=== PATIENT | male | born 1970 | race Caucasian/White ===

== ENCOUNTER 2025-04-03 10:59 | Day surgery (SDC) | payer OTHER ==
[~2025-04-03 10:59] MED LIST: Lactated Ringers 1,000 ML IV ONE
[2025-04-03 11:18] VITALS: RESP 18
[2025-04-03] MEDS ORDERED: Lactated Ringers 1,000 ML IV SCH (11:30)
[2025-04-03] MEDS ORDERED: propofoL IV ONE ×2 (11:55→12:28)
[2025-04-03] MEDS ORDERED: Xylocaine-Mpf 2% 5 Ml Vial ONE (11:56)
[2025-04-03 13:00] VITALS: BP 113/66; PULSE 63; TEMP 97.4; O2SAT 100
--- NOTE | 2025-04-04 09:01 | OP ---
SURGERY DATE/TIME: 04/03/2025 [id number] PREOPERATIVE DIAGNOSES: 1) Due for colorectal cancer screening, average risk. 2) Bright red blood per rectum. POSTOPERATIVE DIAGNOSES: 1) Mild internal hemorrhoids. 2) Fair preparation. PROCEDURE: Colonoscopy. SURGEON: Teja Porter MD ANESTHESIA: IV. DISPOSITION: Stable. COMPLICATIONS: None. SPECIMEN: None. INDICATIONS: The patient is a 55-year-old male due to colonoscopy screening, average risk. He is also having some bright red blood per rectum that was pretty isolated, is actually doing better now. Subjectively may be internal hemorrhoids but discussed with him. He elects to proceed with colonoscopy. FINDINGS: Fair preparation. Mild internal hemorrhoids. DESCRIPTION OF PROCEDURE AND FINDINGS: The patient brought to the endoscopy suite, routinely positioned and prepared. IV anesthesia induced by Anesthesia. External exam is normal. No fissure. No really external hemorrhoids. Digital rectal exam otherwise normal. Colonoscope inserted, advanced to the cecum confirmed by the ileocecal valve and the appendiceal orifice. Preparation is [place] fair preparation, 90% mucosal visualization. Withdrawal time greater than 10 minutes. On withdrawal, stool was suctioned out, about 90% mucosal visualization. Exam otherwise normal. Retroflexion just with mild internal hemorrhoids. Scope withdrawal. The patient tolerated the procedure well. RECOMMENDATIONS: Recall in 3 years for screening colonoscopy due to the fair prep. Could consider Cologuard otherwise. Regarding the blood, would just have him look out for any further symptoms and follow up as needed with that.
== END 2025-04-03 13:09 | disposition home or self-care (01) ==
LOC: SDC 10:59
PROVIDERS: ATTEND Surgery
DX: Z12.11 Encounter for screening for malignant neoplasm of colon (principal); K62.5 Hemorrhage of anus and rectum; K64.8 Other hemorrhoids